=== PATIENT | female | born 1960 | race Caucasian/White ===

== ENCOUNTER 2017-02-19 14:17 | Emergency (ER) | payer MEDICAID ==
[2017-02-19 14:18] VITALS: BMI 30.2
[2017-02-19 14:32] VITALS: O2SAT 99
[2017-02-19] MEDS ORDERED: diaZEpam 10 mg/2 ml Inj IVP ONE (15:06)
--- NOTE | 2017-02-19 15:16 | ED PDOC ---
Arrival/HPI - General Chief Complaint: Back Pain Time Seen by Provider: 02/19/17 15:03 Historian: Patient - History of Present Illness Narrative History of Present Illness (Text): 02/19/17 15:04 56 year old female, whose past medical history includes scoliosis, presents to the emergency department complaining of left lower back pain for 1 week. Patient reports that it is a left sided pain in her L buttock and radiates down into the L lateral thigh. She reports that she was been told it is sciatica. She states the pain worsens with movement and when standing up straight. She denies midline pain. She reports trying multiple methods to reduce the pain including a hot shower, IcyHot pads and Ibuprofen, but notes no relief. Patient denies any fever, chills, nausea, vomiting abdominal pain, urinary symptoms, lower extremity weakness, chest pain, shortness of breath, headache, dizziness, or any other complaints. PMD: Dr. Ohara Time/Duration: 1 week Symptom Course: Unchanged Quality: Other Context: Home Past Medical History - Provider Review Nursing Documentation Reviewed: Yes - Infectious Disease Hx of Infectious Diseases: None - Tetanus Immunization Tetanus Immunization: Unknown - Reproductive Menopause: Yes - Cardiac Hx Cardiac Disorders: Yes Hx Hypertension: Yes - Pulmonary Hx Respiratory Disorders: No - Neurological Hx Neurological Disorder: No - HEENT Hx HEENT Disorder: Yes Other/Comment: glasses - Renal Hx Renal Disorder: No - Endocrine/Metabolic Hx Endocrine Disorders: No - Hematological/Oncological Hx Blood Disorders: No - Integumentary Hx Dermatological Disorder: No - Musculoskeletal/Rheumatological Hx Musculoskeletal Disorders: Yes Other/Comment: scoliosis - Gastrointestinal Hx Gastrointestinal Disorders: Yes Hx Gastroesophageal Reflux: Yes - Genitourinary/Gynecological Hx Genitourinary Disorders: No - Psychiatric Hx Psychophysiologic Disorder: No Hx Depression: No Hx Emotional Abuse: No Hx Physical Abuse: No Hx Substance Use: No - Surgical History Hx Inguinal Hernia Repair: Yes (4 yrs ago) - Anesthesia Hx Anesthesia: Yes Hx Anesthesia Reactions: No Hx Malignant Hyperthermia: No - Suicidal Assessment Feels Threatened In Home Enviroment: No Family/Social History - Physician Review Nursing Documentation Reviewed: Yes Family/Social History: No Known Family HX Smoking Status: Never Smoked Hx Alcohol Use: No Hx Substance Use: No Hx Substance Use Treatment: No Allergies/Home Meds Allergies/Adverse Reactions: Allergies No Known Allergies Allergy (Verified 02/19/17 14:27) Home Medications: Home Meds Medication Instructions Recorded Confirmed Ranitidine HCl [Acid [facility] [employer] 150] 150 mg PO BID 08/15/15 02/19/17 Simvastatin 10 mg PO DAILY 08/15/15 02/19/17 amLODIPine [Norvasc] 10 mg PO DAILY 08/15/15 02/19/17 Cholecalciferol [Vitamin D 1000 IU] 5,000 unit PO QWK 02/19/17 02/19/17 Review of Systems - Physician Review All systems were reviewed & negative as marked: Yes - Review of Systems Constitutional: absent: Fevers, Night Sweats Respiratory: absent: SOB Cardiovascular: absent: Chest Pain Gastrointestinal: absent: Abdominal Pain, Nausea, Vomiting Genitourinary Female: absent: Dysuria, Frequency, Hematuria, Urine Output Changes Musculoskeletal: Back Pain (Left lower back pain radiating down left leg). absent: Neck Pain Neurological: absent: Headache, Dizziness Physical Exam Vital Signs Reviewed: Yes Vital Signs Temp Pulse Resp BP Pulse Ox 02/19/17 17:14 61 16 132/81 99 02/19/17 16:18 97.7 F 68 16 116/82 99 02/19/17 14:31 98.1 F 69 19 115/78 99 Temperature: Afebrile Blood Pressure: Normal Pulse: Regular Respiratory Rate: Normal Appearance: Positive for: Well-Appearing Pain Distress: None Mental Status: Positive for: Alert and Oriented X 3 - Systems Exam Head: Present: Atraumatic, Normocephalic Pupils: Present: PERRL Extroacular Muscles: Present: EOMI Conjunctiva: Present: Normal Mouth: Present: Moist Mucous Membranes Pharnyx: No: ERYTHEMA, EXUDATE, TONSILS ENLARGED Neck: Present: Normal Range of Motion. No: MIDLINE TENDERNESS Respiratory/Chest: Present: Clear to Auscultation, Good Air Exchange. No: Respiratory Distress, Accessory Muscle Use Cardiovascular: Present: Regular Rate and Rhythm, Normal S1, S2. No: Murmurs Abdomen: Present: Normal Bowel Sounds. No: Tenderness, Distention, Peritoneal Signs Back: Present: Pain with Leg Raise (Postive left leg raise). No: CVA Tenderness , Midline Tenderness, Paraspinal Tenderness Upper Extremity: Present: Normal Inspection, Normal ROM, NORMAL PULSES. No: Cyanosis, Edema Lower Extremity: Present: Normal Inspection, NORMAL PULSES, Normal ROM. No: Edema, CALF TENDERNESS Neurological: Present: GCS=15, CN II-XII Intact, Speech Normal Skin: Present: Warm, Dry, Normal Color. No: Rashes Psychiatric: Present: Alert, Oriented x 3, Normal Insight, Normal Concentration Medical Decision Making ED Course and Treatment: 02/19/17 15:03 Impression: 56 year old female patient present complaining of lower left back pain since yesterday. No neuro deficits and presentation consistent with sciatica Plan: -- Toradol and Valium -- Reassess and disposition Progress Notes: 02/19/17 16:53 Efrain reports that back pain is improved. She has no urinary or bowel complaints. She denies weakness or numbness. She is ambulating around the ED without issue. She was instructed to follow-up with PMD - Medication Orders Current Medication Orders: Discontinued Medications Diazepam (Valium) 5 mg IVP ONCE ONE PRN Reason: Protocol Stop: 02/19/17 15:07 Last Admin: 02/19/17 15:30 Dose: 5 mg Ketorolac Tromethamine (Toradol) 30 mg IVP STAT STA Stop: 02/19/17 15:07 Last Admin: 02/19/17 15:29 Dose: 30 mg - Scribe Statement The provider has reviewed the documentation as recorded by the Scribdominique Beck training with Rhonda Mcneal Provider Scribe Attestation: All medical record entries made by the Scribe were at my direction and personally dictated by me. I have reviewed the chart and agree that the record accurately reflects my personal performance of the history, physical exam, medical decision making, and the department course for this patient. I have also personally directed, reviewed, and agree with the discharge instructions and disposition. Disposition/Present on Arrival - Present on Arrival Any Indicators Present on Arrival: No History of DVT/PE: No History of Uncontrolled Diabetes: No Urinary Catheter: No History of Decub. Ulcer: No History Surgical Site Infection Following: None - Disposition Have Diagnosis and Disposition been Completed?: Yes Diagnosis: Sciatica Disposition: HOME/ ROUTINE Disposition Time: 16:54 Patient Plan: Discharge Condition: GOOD Discharge Instructions (ExitCare): Sciatica (ED) Additional Instructions: Follow up with PMD within 2 days. Return to ED if condition worsens. Flexeril for pain. Prescriptions: Cyclobenzaprine [Flexeril] 5 mg PO TID #20 tab Referrals: Steven Ohara MD [Primary Care Provider] - Follow up with primary Forms: [employer] (Setswana)
[2017-02-19 16:19] VITALS: RESP 16; TEMP 97.7
[2017-02-19 17:16] VITALS: BP 132/81; PULSE 61
== END 2017-02-19 17:16 | disposition home or self-care (01) ==
LOC: ED 14:17
DX: M54.30 Sciatica, unspecified side (principal)
CPT/HCPCS: 96374; 96375; 99283; J1885; J3360

== ENCOUNTER 2018-12-03 09:10 | Outpatient (CLI) | payer MEDICAID | END 2018-12-03 09:11 | disposition home or self-care (01) | LOC: RAD 09:10 ==